=== PATIENT | male | born 1960 | race Caucasian/White ===

== ENCOUNTER 2017-02-26 22:59 | Emergency (ER) | END 2017-02-27 03:26 | disposition left against medical advice (07) ==

== ENCOUNTER 2018-09-11 16:42 | Emergency (ER) | payer BC ==
[~2018-09-11] VITALS: Ht 182.9 cm; Wt 102.6 kg
[~2018-09-11 16:42] MED LIST: AZIT250T PO; GUAI-173 PO; TAMS-14 PO
[2018-09-11 16:46] VITALS: BP 125/63; PULSE 89; RESP 20; Ht 182.9 cm; Wt 102.6 kg
[2018-09-11] MEDS ORDERED: IBUPROFEN 800 MG TAB PO ONE (17:30)
[2018-09-11] MEDS ORDERED: IBUP800T48 PO (18:15)
--- NOTE | 2018-09-11 18:17 | ERD ---
ER Documentation Chief Complaint Chief Complaint c/o left hand pain and swelling after fall today HPI 58-year-old male presents to ED status post falling out on outstretched hand this morning at 5 AM. He reports he tripped and try to catch himself with his left hand and has had pain and swelling in the left hand since the incident. He denies any previous injuries to the left hand. He states that the pain is 7 out of 10 intensity and is sharp, constant and pulsating. He states the pain is worse underneath his pinky and on the medial side of his hand. He has not taken any medications to help alleviate his pain. Past medical history of multiple myeloma ROS All systems reviewed and are negative except as per history of present illness. Medications Home Meds Active Scripts Ibuprofen* (Motrin*) 800 Mg Tab, 800 MG PO Q6H PRN for PAIN AND OR ELEVATED TEMP, #30 TAB Prov:MARCIAL SANCHEZ PA-C 09/11/18 Guaifenesin* (Tussin*) 100 Mg/5 Ml Syrup, 200 MG PO Q6 PRN for COUGH for 3 Days, ML Prov:JAQUI FRANCIS 02/27/17 Azithromycin* (Zithromax*) 250 Mg Tablet, 250 MG PO .ZPACK DIRECTED, #6 TAB TAKE 500 MG (2 TABS) THE FIRST DAY THEN 250 MG (1 TAB) DAYS 2-5 Prov:JAQUI FRANCIS 02/27/17 Tamsulosin Hcl* (Flomax*) 0.4 Mg Cap.er.24h, 0.4 MG PO BID, #10 CAP Prov:KRISTI TUCKER PA-C 03/30/15 Allergies Allergies: Coded Allergies: No Known Allergy (Unverified , 09/11/18) PMhx/Soc History of Surgery: No Anesthesia Reaction: No Hx Neurological Disorder: No Hx Respiratory Disorders: No Hx Cardiac Disorders: No Hx Psychiatric Problems: No Hx Miscellaneous Medical Probl: Yes (current multiple myeloma, current chemotherapy) Hx Alcohol Use: Yes (casual) Hx Substance Use: No Hx Tobacco Use: No Smoking Status: Never smoker FmHx Family History: No diabetes Physical Exam Vitals Vital Signs Date Temp Pulse Resp B/P (MAP) Pulse Ox O2 O2 Flow FiO2 Time Delivery Rate 09/11/18 98.5 89 20 125/63 100 16:46 (83) Physical Exam Const: No acute distress Head: Atraumatic Eyes: Normal Conjunctiva ENT: Normal External Ears, Nose and Mouth. Neck: Full range of motion. No meningismus. Resp: Clear to auscultation bilaterally Cardio: Regular rate and rhythm, no murmurs Abd: Soft, non tender, non distended. Normal bowel sounds Skin: No petechiae or rashes Back: No midline or flank tenderness Ext: Left hand: Significantly swollen, good pulses 2+, fair range of motion limited due to pain. Able to make a fist and move all fingers. Good sensation. Tenderness at the medial aspect of the hand Neur: Awake and alert Psych: Normal Mood and Affect Results 24 hrs Current Medications Medications Dose Sig/Jarred Start Time Status Last (Trade) Ordered Route PRN Stop Time Admin Dose Reason Admin Ibuprofen 800 mg ONCE ONCE 09/11/18 DC 09/11/18 (Motrin) PO 17:30 09/11/18 17:23 17:31 Procedures/MDM ED COURSE: The patient was stable throughout ED course. I kept the patient informed of laboratory and diagnostic imaging results throughout the ED course. DIAGNOSTIC IMAGING: Read by radiologist. PROCEDURE: XR Left Wrist. CLINICAL INDICATION: Trauma TECHNIQUE: AP, lateral and oblique views of the left wrist were performed. COMPARISON: No prior studies are available for comparison. FINDINGS: There is no evidence of acute fracture. No evidence of dislocation or subluxation. The bones appear well mineralized. The joint spaces are well preserved. There is swelling on the ulnar aspect of the wrist and hand. IMPRESSION: No fracture or dislocation. Swelling ulnar aspect wrist and hand. .Ernesto Moore MD, MD Date Time Electronically viewed and signed by .Ernesto Moore MD, on 09/11/2018 17:49 PROCEDURE: HAND RADIOGRAPH CLINICAL INDICATION: Trauma. TECHNIQUE: PA, lateral and oblique views of the left hand. COMPARISON: None. FINDINGS: There is a nondisplaced fracture of the base of the fifth metacarpal bone best seen on the oblique and lateral views. There is no joint dislocation. The joint spaces are preserved. The soft tissues are unremarkable. IMPRESSION: Nondisplaced fracture of the base of the metacarpal bone. RPTAT : HMZ .Ariel Christianson MD, Date Time Electronically viewed and signed by .Ariel Christianson MD, on 09/11/2018 17:50 PROCEDURES: Patient is placed in a Splint Assessment: Neurovascularly intact pre and post splint placement with good fit. Patient's extremity symptoms have stabilized while they have been evaluated in the department and are appropriate for outpatient follow up. No evidence of dislocations, compartment syndrome, neurologic injury, vascular injury, open joint, open fracture, tendon laceration, septic arthritis, osteomyelitis, DVT, foreign body, or other emergent conditions. MEDICATIONS GIVEN: motrin Patient tolerated medication well with no adverse reactions. Patient reported improvement in pain. MEDICAL DECISION MAKING: Patient is a 58-year-old male presenting status post falling out on outstretched hand after falling this morning at 5 AM. Patient reports his hand is been tender and swollen all day. He was unable to come earlier because he had to go to work. On physical exam patient shows significant swelling and is tender along the medial aspect of the hand and along the fifth finger. X-ray imaging was done showing nondisplaced fracture of the base of the fifth metacarpal bone. I have low suspicion for open fracture, dislocation, septic joint, osteomyelitis. Patient was placed in a splint and given prescription for Motrin and was given an ice bag. Patient was instructed to follow-up with Ortho in the next 1 to 2 days. Vital signs were reviewed. Patient is afebrile. Patient was not hypoxic. Patient was hemodynamically stable. Patient was told to follow up with primary care for further care and management. PRESCRIPTION: motrin DISCHARGE: At this time, patient is stable for discharge and outpatient management. I have instructed the patient to follow-up with his/her primary care physician in 1-2 days. I have discussed with the patient the possibility of needing to see a specialist for further workup and imaging studies if symptoms persist. I have instructed the patient to promptly return to the ER for any new or worsening symptoms including increased pain, fever, nausea, vomiting, weakness or LOC. The patient expressed understanding of and agreement with this plan. All questions were answered. Home care instructions were provided. Disclaimer: Inadvertent spelling and grammatical errors are likely due to EHR/dictation software use and do not reflect on the overall quality of patient care. Also, please note that the electronic time recorded on this note does not necessarily reflect the actual time of the patient encounter. Departure Diagnosis: Primary Impression: Hand fracture Encounter type: initial encounter Fracture type: closed Laterality: left Qualified Codes: S62.92XA - Unspecified fracture of left wrist and hand, initial encounter for closed fracture Condition: Fair Patient Instructions: Treating Hand Fractures Referrals: [facility], [facility] YOU HAVE RECEIVED A MEDICAL SCREENING EXAM AND THE RESULTS INDICATE THAT YOU DO NOT HAVE A CONDITION THAT REQUIRES URGENT TREATMENT IN THE EMERGENCY DEPARTMENT. FURTHER EVALUATION AND TREATMENT OF YOUR CONDITION CAN WAIT UNTIL YOU ARE SEEN IN YOUR DOCTORS OFFICE WITHIN THE NEXT 1-2 DAYS. IT IS YOUR RESPONSIBILITY TO MAKE AN APPOINTMENT FOR FOLOW-UP CARE. IF YOU HAVE A PRIMARY DOCTOR --you should call your primary doctor and schedule an appointment IF YOU DO NOT HAVE A PRIMARY DOCTOR YOU CAN CALL OUR PHYSICIAN REFERRAL HOTLINE AT IF YOU CAN NOT AFFORD TO SEE A PHYSICIAN YOU CAN CHOSE FROM THE FOLLOWING [facility] [address] [facility]. [facility] [address] [facility]. [facility] [address] [facility] [facility] [address] [facility] [facility] [address] [facility]. [facility]. [address] [facility]. [facility] YOU HAVE RECEIVED A MEDICAL SCREENING EXAM AND THE RESULTS INDICATE THAT YOU DO NOT HAVE A CONDITION THAT REQUIRES URGENT TREATMENT IN THE EMERGENCY DEPARTMENT. FURTHER EVALUATION AND TREATMENT OF YOUR CONDITION CAN WAIT UNTIL YOU ARE SEEN IN YOUR DOCTORS OFFICE WITHIN THE NEXT 1-2 DAYS. IT IS YOUR RESPONSIBILITY TO MAKE AN APPOINTMENT FOR FOLOW-UP CARE. IF YOU HAVE A PRIMARY DOCTOR --you should call your primary doctor and schedule and appointment IF YOU DO NOT HAVE A PRIMARY DOCTOR YOU CAN CALL OUR PHYSICIAN REFERRAL HOTLINE AT . IF YOU CAN NOT AFFORD TO SEE A PHYSICIAN YOU CAN CHOSE FROM THE FOLLOWING [facility] INSTITUTIONS: [facility] [id number] [place] [address] [facility] [address] [place] [address] [facility] [address] [place] [address] Additional Instructions: Follow up with ortho in tomorrow. Ice and Motrin as needed to help reduce inflammation Call your primary care doctor TOMORROW for an appointment during the next 1-2 days.See the doctor sooner or return here if your condition worsens before your appointment time. MARCIAL SANCHEZ PA-C Sep 11, 2018 18:17
== END 2018-09-11 18:55 | disposition home or self-care (01) ==
LOC: FTE 16:42
DX: S62.347A Nondisplaced fracture of base of fifth metacarpal bone, left hand, initial encounter for closed fracture (principal); W01.0XXA Fall on same level from slipping, tripping and stumbling without subsequent striking against object, initial encounter; Y92.9 Unspecified place or not applicable